=== PATIENT | female | born 1965 | race American Indian/Alaskan Native ===

== ENCOUNTER 2018-04-05 14:24 | Outpatient (CLI) | payer OTHER ==
--- NOTE | 2018-04-05 15:42 | Mammography Report ---
BILATERAL DIGITAL SCREENING MAMMOGRAM with CAD: 04/05/18 CLINICAL: Routine screening. COMPARISON:None available. However, a prior mammogram was apparently done at [facility], [place]. FINDINGS: The breasts are heterogeneously dense, which may obscure small masses. Right asymmetries on both views require comparison with a prior mammogram or additional imaging.No architectural distortion or suspicious calcifications.The left breast is negative. IMPRESSION: Right asymmetries requiring further evaluation. BI-RADS CATEGORY: 0 -- Additional Evaluation Required RECOMMENDATION: Comparison with a previous mammogram. We will attempt to obtain a prior mammogram for comparison. If we do not obtain a prior mammogram within 30 days, a revised report will be issued recommending a recall for additional imaging. Please be advised that the patient should not schedule an appointment for return until adequate time (at least 2 weeks) has passed for us to obtain the prior mammogram. ACR BI-RADS MAMMOGRAPHIC CODES: 0 = Needs additional imaging evaluation; 1 = Negative; 2 = Benign; 3 = Probably benign; 4 = Suspicious; 5 = Malignant; 6 = Known biopsy-proven malignancy COMMENT: 1. Dense breast tissue, i.e., adenosis, fibrocystic changes, etc., may obscure an underlying neoplasm. 2. Approximately 10% of cancers are not detected with mammography. 3. A negative mammography report should not delay biopsy if a clinically suspicious mass is present. COMMENT: Patient follow-up letters are generated via our [employer] application.
== END 2018-04-05 14:25 | disposition home or self-care (01) ==
LOC: MAMMO 14:24
DX: Z12.31 Encounter for screening mammogram for malignant neoplasm of breast (principal)
CPT/HCPCS: 77067

== ENCOUNTER 2018-10-31 13:38 | Outpatient (CLI) | payer OTHER ==
--- NOTE | 2018-10-31 15:04 | Ultrasound Report ---
RIGHT DIGITAL DIAGNOSTIC MAMMOGRAM AND RIGHT BREAST ULTRASOUND: 04/05/18 14:24:00 CLINICAL: Recalled to evaluate upper asymmetries. COMPARISON:04/05/18 FINDINGS: Lateralmedial and spot magnification MLO and cc views were performed. Partial effacement of asymmetries on MLO spot. Lateral and CC views are negative. Ultrasound of the upper outer right breast was performed and demonstrated normal fibroglandular structures with no mass, cyst or shadowing. IMPRESSION: Probably benign summation densities of the upper right breast. BI-RADS CATEGORY: 3 - - Probably Benign RECOMMENDATION: 6 month followup right mammogram and ultrasound if needed. ACR BI-RADS MAMMOGRAPHIC CODES: 0 = Needs additional imaging evaluation; 1 = Negative; 2 = Benign; 3 = Probably benign; 4 = Suspicious; 5 = Malignant; 6 = Known biopsy-proven malignancy COMMENT: 1. Dense breast tissue, i.e., adenosis, fibrocystic changes, etc., may obscure an underlying neoplasm. 2. Approximately 10% of cancers are not detected with mammography. 3. A negative mammography report should not delay biopsy if a clinically suspicious mass is present. COMMENT: Patient follow-up letters are generated by our [employer] application.
== END 2018-10-31 13:39 | disposition home or self-care (01) ==
LOC: MAMMO 13:38
PROVIDERS: ATTEND Internal Medicine
DX: R92.8 Other abnormal and inconclusive findings on diagnostic imaging of breast (principal)

== ENCOUNTER 2019-05-23 08:29 | Outpatient (CLI) | payer OTHER ==
--- NOTE | 2019-05-23 12:52 | Mammography Report ---
BILATERAL DIGITAL DIAGNOSTIC MAMMOGRAM WITH CAD -- 05/23/2019 RIGHT LIMITED BREAST ULTRASOUND INDICATION: Month follow-up for right upper parenchymal asymmetries. N63.0rt 6 mth fu lt screening TECHNIQUE: Digital bilateral mammographic imaging was performed. Magnification views were obtained. Limited ultrasound was performed. This examination was interpreted with the benefit of Computer-Aided Detection (CAD) analysis. COMPARISON: 10/31/2018 FINDINGS: Breast Density: The breasts are heterogeneously dense, which may obscure small masses. MAMMOGRAPHIC FINDINGS: Routine views plus lateral and exaggerated CC and spot magnification MLO and C C views of the right breast demonstrate a stable fibroglandular pattern with a stable summation densi ty in the upper breast. No mass, architectural distortion or suspicious calcifications of the right b reast. There is no evidence of dominant mass, suspicious calcifications or architectural distortion i n the left breast. ULTRASOUND FINDINGS: Targeted ultrasound evaluation was performed of the area of interest. Ultrasou nd of the upper right breast was performed and demonstrated normal fibroglandular structures with no mass, cyst or shadowing. IMPRESSION: Negative bilateral mammogram and negative right breast ultrasound. Follow up recommendation: Routine yearly BI-RADS Category 2: Benign. A "normal" or negative report should not discourage follow up or biopsy of a clinically significant f inding. A written summary of these findings will be mailed to the patient. The patient will be entered into a mammography reporting system which will generate a reminder letter for the patient's next appointmen t at the appropriate interval. According to the [employer], yearly mammograms are recommended starting at age 40 and continuing as long as a woman is in good health. Breast MRI is recommended for women with an rebecca roximately 20-25% or greater lifetime risk of breast cancer, including women with a strong family his tory of breast or ovarian cancer and women who have been treated for Hodgkin's disease. Signer Name: Min Vasquez MD Signed: 05/23/2019 12:47 PM Workstation Name: [id number]
--- NOTE | 2019-05-23 15:44 | Ultrasound Report ---
BILATERAL DIGITAL DIAGNOSTIC MAMMOGRAM WITH CAD -- 05/23/2019 RIGHT LIMITED BREAST ULTRASOUND INDICATION: Six-month follow-up for right upper parenchymal asymmetries. N63.0rt 6 mth fu lt screenin g TECHNIQUE: Digital bilateral mammographic imaging was performed. Magnification views were obtained. L imited ultrasound was performed. This examination was interpreted with the benefit of Computer-Aided Detection (CAD) analysis. COMPARISON: 10/31/2018 FINDINGS: Breast Density: The breasts are heterogeneously dense, which may obscure small masses. MAMMOGRAPHIC FINDINGS: Routine views plus lateral and exaggerated CC and spot magnification MLO and C C views of the right breast demonstrate a stable fibroglandular pattern with a stable summation densi ty in the upper breast. No mass, architectural distortion or suspicious calcifications of the right b reast. There is no evidence of dominant mass, suspicious calcifications or architectural distortion i n the left breast. ULTRASOUND FINDINGS: Targeted ultrasound evaluation was performed of the area of interest. Ultrasound of the upper right breast was performed and demonstrated normal fibroglandular structures with no ma ss, cyst or shadowing. IMPRESSION: Negative bilateral mammogram and negative right breast ultrasound. Follow up recommendation: Routine yearly BI-RADS Category 2: Benign Signer Name: Min Vasquez MD Signed: 05/23/2019 3:40 PM Workstation Name: [id number]
== END 2019-05-23 08:30 | disposition home or self-care (01) ==
LOC: MAMMO 08:29
PROVIDERS: ATTEND Internal Medicine
DX: N63.0 Unspecified lump in unspecified breast (principal)
CPT/HCPCS: 77066

== ENCOUNTER 2021-10-19 14:54 | Outpatient (CLI) | payer OTHER ==
--- NOTE | 2021-10-21 09:07 | Mammography Report ---
DIGITAL SCREENING MAMMOGRAM WITH CAD, 10/19/2021 CLINICAL INFORMATION / INDICATION: Routine screening mammography. SCREENING MAMMOGRAM TECHNIQUE: Digital bilateral 2D mammography was obtained in the craniocaudal and mediolateral obliqu e projections. This examination was interpreted with the benefit of Computer-Aided Detection analysis . COMPARISON: 04/05/2018 FINDINGS: Breast Density: The breasts are heterogeneously dense, which may obscure small masses. No dominant mass, suspicious calcifications, or architectural distortion in either breast. Largely unchanged nodular densities in the breasts, commonly fibroglandular or fibrocystic change. IMPRESSION: No mammographic evidence of malignancy. Follow up recommendation: Routine yearly BI-RADS Category 2: BENIGN. A "normal" or negative report should not discourage follow up or biopsy of a clinically significant f inding. A written summary of these findings will be mailed to the patient. The patient will be entered into a mammography reporting system which will generate a reminder letter for the patient's next appointmen t at the appropriate interval. The [employer] recommends yearly mammograms starting at age 40 and continuing as l shawna as a woman is in good health. Breast MRI is recommended for women with an approximate 20-25% or greater lifetime risk of breast cancer, including women with a strong family history of breast or ova brown cancer or who have been treated for Hodgkin's disease. Signer Name: Mohsen Fofana MD Signed: 10/21/2021 9:02 AM Workstation Name: [id number]
== END 2021-10-19 14:55 | disposition home or self-care (01) ==
LOC: MAMMO 14:54
PROVIDERS: ATTEND Internal Medicine
DX: Z12.31 Encounter for screening mammogram for malignant neoplasm of breast (principal)
CPT/HCPCS: 77067

== ENCOUNTER 2021-11-26 15:13 | Outpatient (CLI) | payer OTHER ==
--- NOTE | 2021-11-26 16:40 | Cat Scan Report ---
CT CHEST WITHOUT CONTRAST, LOW-DOSE SCREENING INDICATION / CLINICAL INFORMATION: CHRONIC SMOKER. TECHNIQUE: Thin section axial imaging performed from the lung apices through the costophrenic sulci u sing low-dose technique. All CT scans at this location are performed using CT dose reduction for ALAR A by means of automated exposure control. COMPARISON: None available. FINDINGS: PERIFISSURAL NODULE(S): None. BENIGN NODULE(S) with Specific Calcifications or Fat: None. SOLID NODULE(S): 3 mm nodule lateral left upper lobe series 2 image 40. PARTIALLY SOLID NODULE(S): None. NONSOLID / GROUND GLASS NODULE(S): None. ENDOBRONCHIAL NODULE(S): None. LUNGS: No acute air space or interstitial disease. PLEURA: No pneumothorax. No significant pleural effusion. HEART: No significant abnormality. CORONARY ARTERY CALCIFICATION: Minimal. MEDIASTINUM / NAA: No significant abnormality. THORACIC AORTA: No significant abnormality. ADDITIONAL FINDINGS: None. UPPER ABDOMEN: Evaluation is limited due to low-dose technique. No significant abnormality. SKELETAL SYSTEM: No significant abnormality. IMPRESSION: 1. Most Suspicious Nodule (if any): 3 mm solid nodule lateral left upper lobe. 2. Lung-RADS Category 2: BENIGN APPEARANCE OR BEHAVIOR - Recommendation: Continue annual LDCT screening in 12 months. - Please see below for additional details. 3. No significant additional findings. Lung-RADS Version 1.1 Assessment Categories (2019) CATEGORY 0: INCOMPLETE - Incomplete exam or Prior chest CT examination(s) being located for comparison - Recommendation: Additional lung cancer screening CT images and/or comparison to prior chest CT exa minations is needed CATEGORY 1: NEGATIVE - No lung nodules OR benign nodules - Recommendation: Continue annual low dose CT (LDCT) screening in 12 months. CATEGORY 2: BENIGN APPEARANCE OR BEHAVIOR - PERIFISSURAL nodule: < 10.0 mm - SOLID nodule: Prior nodule < 6.0 mm or New nodule < 4.0 mm - PARTIALLY SOLID nodule: < 6.0 mm - NONSOLID nodule: < 30 mm or > 30 mm and unchanged or slow growth (< 1.5 mm since last exam) - CATEGORY 3 or 4 nodules unchanged for >= 3 months - Recommendation: Continue annual LDCT screening in 12 months. CATEGORY 3: PROBABLY BENIGN - SOLID nodule: 6.0-7.9 mm at Baseline OR New solid nodule between 4.0-5.9 mm. - PARTIALLY SOLID nodule: >= 6.0 mm with solid component < 6.0 mm OR new < 6.0 mm total diameter - NONSOLID nodule: >= [address] or new - Recommendation: Follow-up LDCT in 6 months. CATEGORY 4A: SUSPICIOUS - SOLID nodule: 8.0-14.9 mm OR Growing < 8.0 mm OR New 6-7.9 mm. - PARTIALLY SOLID nodule: >= 6.0 mm with solid component 6.0-7.9 mm OR New/Growing solid component < 4.0 mm - ENDOBRONCHIAL nodule - Recommendation: Follow-up with LDCT in 3 months; or, PET/CT may be used if there is a solid compon ent to the nodule measuring 8.0 mm or larger. CATEGORY 4B: VERY SUSPICIOUS - Prior SOLID nodule: >= 15.0 mm OR New/Growing component and >= 8.0 mm - PARTIALLY SOLID nodule: solid component >= 8.0 mm OR New/Growing solid component >= 4.0 mm - Recommendation: Follow-up with CT chest with contrast, PET/CT, and or tissue sampling depending on comorbidities and probability of malignancy as determined by the referring clinician. PET/CT may be used when there is a solid component of at least 8.0 mm. For new large nodules that develop on an an nual repeat screening CT, a 1 month LDCT may be recommended to address potentially infectious or infl ammatory conditions. CATEGORY 4X: VERY SUSPICIOUS - CATEGORY 3 or 4 nodules with additional features or imaging findings that increases the suspicion of malignancy. - Recommendation: Follow-up with CT chest with contrast, PET/CT, and or tissue sampling depending on comorbidities and probability of malignancy as determined by the referring clinician. PET/CT may be used when there is a solid component of at least 8.0 mm. For new large nodules that develop on an an nual repeat screening CT, a 1 month LDCT may be recommended to address potentially infectious or infl ammatory conditions. Signer Name: Josué Le MD Signed: 11/26/2021 4:36 PM Workstation Name: [id number]
== END 2021-11-26 15:14 | disposition home or self-care (01) ==
LOC: CT 15:13
PROVIDERS: ATTEND Internal Medicine
DX: Z12.2 Encounter for screening for malignant neoplasm of respiratory organs (principal); Z87.891 Personal history of nicotine dependence; F17.210 Nicotine dependence, cigarettes, uncomplicated; R31.29 Other microscopic hematuria; Z01.89 Encounter for other specified special examinations
CPT/HCPCS: 71271